=== PATIENT | female | born 1965 | race Caucasian/White ===

== ENCOUNTER 2017-06-10 10:11 | Day surgery (SDC) | payer OTHER ==
--- NOTE | 2017-06-09 13:20 | HP ---
DATE OF ADMISSION: 06/06/2017 HISTORY OF PRESENT ILLNESS: This is a 52-year-old female patient with a long history of recurrent sore throats and chronic cryptic tonsillitis, unresponsive to medication, now admitted to the hospital for tonsillectomy surgery. ALLERGIES: NONE. DAILY MEDICATIONS: Spirulina. MEDICAL CONDITIONS: None. PRIOR SURGERY: None. CLOTTING DISORDERS, HABITS, FAMILY HISTORY, REVIEW OF SYSTEMS: Negative. PHYSICAL EXAM: GENERAL: Well-developed, well-nourished female patient in no acute distress. HEENT: Head is normocephalic. No masses or deformities. Ears, tympanic membranes are normal. Nose is clear. Oropharynx, tonsils are 3+, cryptic, hypertrophic, and chronically infected. NECK: Shotty cervical lymphadenopathy. CHEST: Clear to P and A. HEART: Regular sinus rhythm without murmur. ABDOMEN: Soft. Bowel sounds are normal. No masses or megaly. EXTREMITIES: Full range of motion without deformity. NEUROLOGIC: Physiologic. PELVIC AND RECTAL: Not done. IMPRESSION: Chronic recurrent tonsillitis. RECOMMENDATIONS: Admit for surgery. Dictated By: Mamadou Sales MD /shashank/moises /Document#: [id number]
[2017-06-09 17:19] VITALS: BMI 27.0
[~2017-06-10] VITALS: Ht 160 cm; Wt 66.2 kg
[2017-06-10] VITALS (9 sets, daily range): BP systolic 127–160; BP diastolic 62–79; PULSE 58–82; RESP 14–20; Ht 160 cm; Wt 66.2 kg
[~2017-06-10 10:11] MED LIST: ASPI-664 PO; ATOR20TA38 PO; LISI-524 PO
[2017-06-10] MEDS ORDERED: DIPHENHYDRAMINE 50 MG INJ IV PRN (11:00)
[2017-06-10] MEDS ORDERED: FENTAnyl 50 MCG/ML VIAL IV PRN ×2 (11:00)
[2017-06-10] MEDS ORDERED: MEPERIDINE 25 MG INJ IV PRN (11:00)
[2017-06-10] MEDS ORDERED: ONDANSETRON 4 MG INJ IV PRN (11:00)
[2017-06-10] MEDS ORDERED: HYDROmorphONE (0.2 MG/ML) 10ML SYG IV PRN ×2 (11:00)
[2017-06-10] MEDS ORDERED: METOCLOPRAMIDE 10 MG INJ IV PRN (11:00)
--- NOTE | 2017-06-10 11:07 | OPR ---
Date/Time of Note Date/Time of Note DATE: 06/10/17 TIME: 11:05 PETRA GILLILAND MD Jun 10, 2017 11:07
--- NOTE | 2017-06-10 11:11 | OPR ---
Date/Time of Note Date/Time of Note DATE: 06/10/17 TIME: 11:10 Operative Report Free Text/Dictation Tonsillectomy PETRA GILLILAND MD Jun 10, 2017 11:11
[2017-06-10] MEDS ORDERED: PROPOFOL 20 ML ONE (11:47)
[2017-06-10] MEDS ORDERED: LIDOCAINE 2% (SDV) 5 ML INJ ONE (11:47)
[2017-06-10] MEDS ORDERED: NEOSTIGMINE 3 MG/3 ML SYRINGE ONE (11:47)
[2017-06-10] MEDS ORDERED: GLYCOPYRROLATE 0.4 MG INJ ONE (11:47)
[2017-06-10] MEDS ORDERED: FENTAnyl 50 MCG/ML VIAL ONE (11:47)
[2017-06-10] MEDS ORDERED: SUCCINYLCHOLINE CHLORIDE 100 MG/5 ML SYG IV ONE (11:47)
[2017-06-10] MEDS ORDERED: ROCURONIUM 50 MG INJ ONE (11:47)
--- NOTE | 2017-06-10 13:06 | OPR ---
Date/Time of Note Date/Time of Note DATE: 06/10/17 TIME: 13:04 Operative Report Free Text/Dictation Preoperative Diagnosis: chronic tonsilitis Postoperative Diagnosis: same Operation Performed: Tonsillectomy Surgeron: Dr. Mamadou Gilliland Anesthesia: gerneral EBL: Minimal Transfusion required: none Specimens: to pathology Grafts/Implants: none Complications: none MAMADOU GILLILAND MD Jun 10, 2017 13:06
[2017-06-10] MEDS ORDERED: HYDROCODONE/APAP (7.5/325) TAB PO PRN (13:30)
[2017-06-10] MEDS ORDERED: HYDROmorphONE 1 MG/ML SYG ONE (14:08)
[2017-06-10] MEDS ORDERED: HYDROmorphONE 1 MG/ML SYG IV PRN ×2 (14:30)
--- NOTE | 2017-06-10 14:32 | RADRPT ---
Vent Rate: 74 bpm RR Interval: 0 msec [place] Interval: 150 msec QRS Duration: 84 msec QT Interval: 390 msec QTC Interval: 432 msec P-R-T Felda: 68 - 54 - 49 degrees Normal sinus rhythm Normal ECG Electronically Signed By: Morgan Sosa [id number]
--- NOTE | 2017-06-14 08:33 | OPR ---
DATE OF OPERATION: PREOPERATIVE DIAGNOSIS: Chronic tonsillitis. POSTOPERATIVE DIAGNOSIS: Chronic tonsillitis. OPERATION PERFORMED: Tonsillectomy. OPERATIVE PROCEDURE: Patient brought to the operating room under parental sedation, general oral endotracheal anesthesia. With the patient in the supine position, sterile sheets and drapes applied. A medium blade McIvor mouth gag was inserted. Tonsillectomy was performed with a dissection technique. Bleeding points were electrocoagulated for hemostasis. Tonsillar fossa were irrigated, suctioned and were dry at the termination of the procedure. The patient was awakened and extubated in the operating room, returned to recovery in excellent condition. ESTIMATED BLOOD LOSS: 10-15 cc. COMPLICATIONS: None. Dictated By: Mamadou Sales MD /[email or web address]/cecilia /Document#: [id number]
== END 2017-06-10 15:35 | disposition home or self-care (01) ==
LOC: SDS 10:11
PROVIDERS: ATTEND Otolaryngology Otolaryngology/Facial Plastic Surgery
DX: J35.01 Chronic tonsillitis (principal); I10 Essential (primary) hypertension; E66.9 Obesity, unspecified; Z68.25 Body mass index [BMI] 25.0-25.9, adult
CPT/HCPCS: 42826; 88302; 93005; J1170; J2175; J2405; J2710; J3010; J7999; Z7512; Z7610